=== PATIENT | male | born 1990 | race African-American/Black ===

== ENCOUNTER 2016-11-11 11:42 | Emergency (ER) | payer OTHER ==
[~2016-11-11] VITALS: Ht 180.3 cm; Wt 87.6 kg
[~2016-11-11 11:42] MED LIST: FLORASTOR250 MG PO; FOLBIC RF TABL1 EACH PO; HALDOL1 MG PO; METRONIDAZOLE500 MG PO; MOTRIN800 MG PO; NAPROSYN500 MG PO; NOHOMEMEDS; NORCO 5/3251 TABLET PO; PERCOCET 5/31 TABLET PO; PROMETHAZINE HC25 M1 PO; SERTRALINE HCL50 MG PO; STELAZINE PO; ZOFRAN4 MG PO; [UNRECOGNIZED DRUG - OTHER] PO
[2016-11-11] MEDS ORDERED: MOTRIN800 MG PO (12:47)
[2016-11-11 13:35] VITALS: BP 127/86
[2016-11-12] MEDS ORDERED: ULTRAM50 MG PO (16:50)
== END 2016-11-11 13:36 | disposition home or self-care (01) ==
LOC: EME 11:42
PROC: 2W38X1Z Immobilization of Right Upper Extremity using Splint (ICD-10-PCS; principal; 2016-11-11)
DX: S60.221A Contusion of right hand, initial encounter (principal); S60.222A Contusion of left hand, initial encounter; W22.09XA Striking against other stationary object, initial encounter
CPT/HCPCS: 73130; 99281; 99284

== ENCOUNTER 2016-11-12 15:13 | Emergency (ER) | payer OTHER ==
[~2016-11-12] VITALS: Ht 180.3 cm; Wt 88.1 kg
[2016-11-12] MEDS ORDERED: ULTRAM50 MG PO (16:50)
[2016-11-12 17:51] VITALS: BP 128/78
== END 2016-11-12 17:56 | disposition home or self-care (01) ==
LOC: EME 15:13 → EXP 15:13
PROC: 2W0CX1Z Change Splint on Right Lower Arm (ICD-10-PCS; principal; 2016-11-12)
DX: S60.221D Contusion of right hand, subsequent encounter (principal); Z47.89 Encounter for other orthopedic aftercare; F17.200 Nicotine dependence, unspecified, uncomplicated; R10.9 Unspecified abdominal pain
CPT/HCPCS: 99281; 99283

== ENCOUNTER 2017-02-05 21:56 | Inpatient (IN) | payer OTHER ==
[~2017-02-05] VITALS: Ht 182.9 cm; Wt 89.5 kg
[~2017-02-05 21:56] MED LIST changes: +ULTRAM50 MG PO
[2017-02-05 22:21] LABS: ADD MIUA? NO; BILIRUBIN NEGATIVE; BLOOD NEGATIVE; COLOR STRAW ((YELLOW)); GLUCOSE (STRIP) NEGATIVE; KETONES NEGATIVE; LEUKOCYTES NEGATIVE; NITRITE NEGATIVE; PROTEIN (STRIP) NEGATIVE; SPECIFIC GRAVITY 1.011 (1.000-1.030); UROBILINOGEN 0.2 MG/DL (0.2-1.0)
[2017-02-05 22:23] LABS: AMPHETAMINE NEGATIVE (500 ng/mL); BARBITURATES NEGATIVE (200 ng/mL); BENZODIAZEPINES NEGATIVE (150 ng/mL); COCAINE NEGATIVE (150 ng/mL); METHADONE NEGATIVE (200 ng/mL); METHAMPHETAMINE PRESUMPTIVE POSITIVE (500 ng/mL); OPIATES (MORPHINE) NEGATIVE (100 ng/mL); OXYCODONE NEGATIVE (100 ng/mL); PHENCYCLIDINE NEGATIVE (25 ng/mL); THC CANNABINOIDS PRESUMPTIVE POSITIVE (50 ng/mL); TRICYCLIC ANTIDEPRESSANTS NEGATIVE (300 ng/mL)
[2017-02-05 22:24] LABS: ADD MEDTOX COMMENT Y; INTERNAL CONTROLS VALID? YES; PROPOXYPHENE NEGATIVE (300 ng/mL)
[2017-02-05 22:32] LABS: HEMATOCRIT 42.1 % (38.0-50.0); MCH 30.4 PG (29.0-34.0); MCHC 34.9 G/DL (30.0-36.0); RBC DIS.WIDTH-SD 38.5 % (39-53); RED BLOOD COUNT 4.84 M/uL (4.00-5.50); WHITE BLOOD COUNT 9.7 K/uL (4.1-10.2)
[2017-02-05 22:40] LABS: CHLORIDE 105 mEq/L (99-109); POTASSIUM 3.2 mEq/L (3.7-5.4); SODIUM 138 mEq/L (136-147)
[2017-02-05 22:42] LABS: GLUCOSE 114 mg/dL (70-99)
[2017-02-05 22:43] LABS: ANION GAP 10 MEQ/L (2-14)
[2017-02-05 22:44] LABS: TOTAL BILIRUBIN 0.3 mg/dL (0.0-1.0)
[2017-02-05 22:45] LABS: SERUM ETHYL ALCOHOL < 10 mg/dL
[2017-02-05 22:46] LABS: GFR ESTIMATE (CALCULATED) > 59 mL/min/
[2017-02-05 22:47] LABS: ALKALINE PHOSPHATASE 72 IU/L (3-129)
[2017-02-05 22:48] LABS: UREA NITROGEN (BUN) 10 mg/dL (9-23)
[2017-02-05 22:49] LABS: SALICYLATE < 5.0 MG/DL (15-30)
[2017-02-05 22:50] LABS: CREATINE KINASE 334 IU/L (1-294)
[2017-02-05 23:24] LABS: MEAN PLAT.VOLUME 10.2 uM^3 (9.0-12.4); PLAT.SUFFICIENCY ADEQUATE; PLATELET COUNT 228 K/uL (156-360)
[2017-02-06] VITALS (10 sets, daily range): BP systolic 93–136; BP diastolic 57–85
[2017-02-06 05:30] LABS: BASE EXCESS -1.8 mEq/L (-3 to +3); BICARBONATE 23.7 mEq/L (22-26); CARBOXY HGB 2.1 % (0-5); COMMENTS - BLOOD GASES A+C+; DEVICE VENT; FI02 40 %; MECHANICAL RATE 16 resp/min; METHEMOGLOBIN 1.7 % (0-1.5); MODE A/C; PCO2 42 mm Hg (35-45); PEEP 5 CM/H20; PO2 159 mm Hg (80-100); SITE LR; TIDAL VOLUME 500 ML; TOTAL RESP RATE 16 resp/min; pH 7.36 (7.35-7.45)
[2017-02-06 07:18] LABS: TRIGLYCERIDES 57 MG/DL (Normal: <150)
[2017-02-06 07:28] LABS: METH RESISTANT S AUREUS PCR POSITIVE (NEGATIVE)
[2017-02-06 07:37] LABS: PROBE CHECK PASS
== END 2017-02-06 14:07 | disposition short-term general hospital (02) | DRG 917 ==
LOC: EME → EDBD 21:56 → EME 21:56 → 4WEST 02-06 03:44 → EDOF 02-06 03:44 → ENRESERV 02-06 03:46 → 4WEST 02-06 04:59
PROVIDERS: Emergency Medicine; Internal Medicine Pulmonary Disease
DX: T43.621A Poisoning by amphetamines, accidental (unintentional), initial encounter (principal); I60.8 Other nontraumatic subarachnoid hemorrhage; G93.6 Cerebral edema; G92 Toxic encephalopathy; I15.8 Other secondary hypertension; I16.1 Hypertensive emergency; E87.6 Hypokalemia; R41.82 Altered mental status, unspecified; R45.1 Restlessness and agitation; F15.10 Other stimulant abuse, uncomplicated; F12.90 Cannabis use, unspecified, uncomplicated; R10.9 Unspecified abdominal pain; F25.9 Schizoaffective disorder, unspecified; F32.9 Major depressive disorder, single episode, unspecified; F17.200 Nicotine dependence, unspecified, uncomplicated
CPT/HCPCS: 36600; 70450; 70496; 70498; 71010; 74174; 80053; 81003; 82550; 82803; 84478; 84999; 85027; 87070; 87205; 87641; 93005; 94002; 94003; 99281; 99285; G0480; J0360; J1630; J1644; J2060; J2250; J2704; J3010; J7030; S0028

== ENCOUNTER 2017-07-27 09:44 | Emergency (ER) | payer OTHER ==
[~2017-07-27] VITALS: Ht 180.3 cm; Wt 92.9 kg
[2017-07-27] MEDS ORDERED: CLARITIN10 M3 PO (10:36)
[2017-07-27] MEDS ORDERED: FLONASE16 G1 BOTH NARES (10:36)
[2017-07-27 11:01] VITALS: BP 139/84
== END 2017-07-27 11:02 | disposition home or self-care (01) ==
LOC: EME 09:44
DX: J02.0 Streptococcal pharyngitis (principal); F17.200 Nicotine dependence, unspecified, uncomplicated
CPT/HCPCS: 87651 90; 99281; 99282; J0561